=== PATIENT | female | born 1955 | race Caucasian/White ===

== ENCOUNTER 2017-01-17 16:45 | Emergency (ER) | payer OTHER ==
[~2017-01-17] VITALS: Ht 154.9 cm; Wt 63.6 kg
[2017-01-17 16:48] VITALS: BP 188/99; PULSE 117; RESP 23; O2SAT 99
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
[2017-01-17 17:49] VITALS: BP 168/101; PULSE 103; RESP 20; O2SAT 98
[2017-01-17] MEDS ORDERED: oxyCODONE-Acetamin 10-325 mg Tablet PO ONE (18:20)
[2017-01-17 18:27] VITALS: BP 156/85; PULSE 106; RESP 20; O2SAT 99
[2017-01-17] MEDS ORDERED: 0.9% Sodium Chloride 1,000 ML IV ONE (19:08)
[2017-01-17] MEDS ORDERED: Ondansetron 2 mg/mL 2 mL Inj IVPUSH PRN (19:10)
[2017-01-17] MEDS ORDERED: HYDROmorphone 0.5 mg/0.5 mL iSecure Syringe IVPUSH PRN (19:10)
[2017-01-17 20:01] LABS: BASOPHILS % (AUTO) 0.2 % (0-3); EOSINOPHILS % (AUTO) 1.2 % (0-5); MONOCYTES % (AUTO) 6.1 % (4-12); Mean Corpuscular Hemoglobin 29.1 pg (27.0-35.0); Mean Corpuscular Volume 84.3 fL (81-100); NEUTROPHILS % (AUTO) 66.2 % (40-74); Platelet Count 280 bil/L (150-400)
[2017-01-17 20:12] LABS: INR 0.94 ratio
[2017-01-17 20:30] LABS: Magnesium 1.5 mg/dL (1.6-2.6); TROPONIN T < 0.010 ug/L (0.0-0.011)
[2017-01-17 20:57] LABS: Lipase 206 U/L (13-60)
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
[2017-01-17 21:15] VITALS: BP 143/83; PULSE 96; RESP 20; O2SAT 93
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
[2017-01-17 22:52] VITALS: BP 154/87; PULSE 102; RESP 20; O2SAT 94
== END 2017-01-17 22:53 | disposition home or self-care (01) ==
LOC: EDBD 16:45 → SED 16:45
DX: R51 Headache (principal); V43.52XA Car driver injured in collision with other type car in traffic accident, initial encounter; Y93.89 Activity, other specified; Y92.410 Unspecified street and highway as the place of occurrence of the external cause; Y99.8 Other external cause status; R10.13 Epigastric pain; R42 Dizziness and giddiness; R11.0 Nausea; M54.2 Cervicalgia; I10 Essential (primary) hypertension; E11.9 Type 2 diabetes mellitus without complications; M79.7 Fibromyalgia
CPT/HCPCS: 36415; 70450; 71260; 72125; 74177; 80053; 81002; 83690; 83735; 84484; 85025; 85610; 85730; 86850; 93005; 96361; 96374; 96375; 99285; G0480; J1170; J2405; J7030; Q9967